=== PATIENT | male | born 1995 | race Caucasian/White ===

== ENCOUNTER 2023-04-03 16:25 | Emergency (ER) | payer BC, SELFPAY ==
[2023-04-03 16:35] VITALS: BP 136/94; PULSE 91; RESP 16; TEMP 36.2; O2SAT 100
--- NOTE | 2023-04-03 16:35 | ED.BACK ---
HPI - Back Pain/Injury General Chief Complaint: Neck Pain/Injury Stated Complaint: Neck and Upper Back Pain Time Seen by Provider: 04/03/23 16:36 Source: patient Mode of arrival: ambulatory Limitations: no limitations History of Present Illness HPI Narrative: 27-year-old male presented for complaint of mid posterior neck pain, onset today at 3:00 a.m. He took a Flexeril at the onset then went back to sleep, and at 9:00 a.m. he took Tylenol and ibuprofen. He states he slept until about an hour prior to arrival. Continues to have neck pain with minimal movement of the neck. Denies numbness, tingling, weakness or pain radiating to the upper extremities. Denies injury or overuse. Related Data Allergies Allergy/AdvReac Type Severity Reaction Status Date / Time No Known Allergies Allergy Verified 04/03/23 16:37 Review of Systems Review of Systems: CONSTITUTIONAL: Denies body aches, fever, chills EYES: Denies visual changes CARDIOVASCULAR: Denies chest pain, palpitations, or edema. RESPIRATORY: Denies cough or dyspnea. GASTROINTESTINAL: Denies abdominal pain, nausea, vomiting, or diarrhea. SKIN: Denies rash, itching, or wounds. MUSCULOSKELETAL: reports neck pain NEUROLOGIC: Denies headache, numbness, tingling, or weakness. All systems reviewed & are unremarkable except as noted in HPI and below PMFSH Past Medical History Medical History (Updated 04/03/23 @ 16:48 by Martina Caruso, MIL) No pertinent past medical history Comments At time of signature, I have reviewed and agree with nursing past medical, surgical, social and family history unless otherwise noted. Please see nursing chart for further information. There is no relevant family history pertinent to the presenting complaint Exam Narrative: GENERAL: Well-appearing, and in no acute distress. HEAD: Normocephalic, atraumatic. EYES: conjunctivae clear PERRLA, EOMI NECK: Supple. full ROM CHEST: Speaks in full sentences. No respiratory distress. HEART: Regular rate and rhythm. Normal and equal peripheral pulses. MUSC: Mid posterior cervical pain reported with movement of head laterally and chin to chest. Minimal pain with lifting chin. No cervical vertebral point tenderness or paraspinal tenderness with palpation. BUEs with normal strength and sensation, normal range of motion; endorses mild neck pain with movement of BUEs overhead. No ecchymosis, No open wounds, or obvious deformity; alignment normal, pulse palpable and equal bilaterally, skin warm, dry, pink. Capillary refill less than 3 seconds. Gait steady. SKIN: Warm, dry, no rash. NEURO: Alert and oriented x3. Course Course Emergency Course: Patient is aware of diagnosis, understands and agrees to treatment plan. Anticipatory guidance given. Patient agrees to follow-up as directed and is aware of reasons to seek care at the emergency department. Portions of this record may have been created with voice recognition software Level of Care: Express Care Visit Vital Signs Vital signs: Reviewed MDM - Back Pain/Injury MDM Narrative Medical decision making narrative: Discussed physical exam findings. No indication for imaging at this time. Reviewed prescriptions. Advised supportive measures and s/s to go to the ER. Pt is stable and appropriate for outpt treatment and follow up with pcp. Provided with list of pcp's. Differential Diagnosis Differential diagnosis: Likely discitis and other (Musculoskeletal injury, torticollis, cervical spondylosis, cervical stenosis, epidural abscess, cervical spine dislocation or fracture, osteomyelitis, disc herniation, cervical radiculopathy) Discharge Plan Discharge Clinical Impression: Acute neck pain Patient Disposition: Home, Self-Care Condition: Stable Instructions: Antibiotic Form, Acute Neck Pain (ED) Additional Instructions: Rest. Avoid pushing, pulling, lifting or anything that worsens the symptoms Take steroid as directed Cyclobenz
== END 2023-04-03 17:00 | disposition home or self-care (01) ==
PROVIDERS: Emergency Provider Nurse Practitioner Family
DX: M54.2 Cervicalgia (principal)
CPT/HCPCS: 99203; G0463

== ENCOUNTER 2023-07-22 09:47 | Emergency (ER) | payer BC, SELFPAY ==
[2023-07-22 10:00] VITALS: BP 137/84; PULSE 84; RESP 18; TEMP 36.4; O2SAT 98
[2023-07-22 10:01] VITALS: BP 137/84; PULSE 84; RESP 18; TEMP 36.4; O2SAT 98
--- NOTE | 2023-07-22 10:10 | ED.GENADULT ---
HPI - General Adult General Chief complaint: Ear Stated complaint: Bilateral Ear Irritation,Rt Eye Irritation Time Seen by Provider: 07/22/23 10:11 Source: patient Mode of arrival: ambulatory Limitations: no limitations History of Present Illness HPI narrative: 27-year-old male patient presents to clinic today with complaints of fevers, chills, productive cough, sore throat, right eye discharge, and right ear discharge with pain. Patient states his fever was on Sunday and was 101.3? F and has been taking Tylenol and Aleve since and has not retaken his temperature. Patient states that last night while driving in his car his ear pain in the right was an 8 out of 10 on a 0-10 pain scale and then he suddenly felt some relief and the pain was reduced to a 4/10 on a 0-10 pain scale. Patient reports muffled hearing of the right ear. Related Data Allergies Allergy/AdvReac Type Severity Reaction Status Date / Time No Known Allergies Allergy Verified 07/22/23 10:01 Review of Systems Review of Systems: CONSTITUTIONAL: positive fever, chills, and sweats. EYES: Denies visual changes, redness, positive right eye discharge without discomfort. ENT: positive rhinorrhea, congestion, sore throat, and bilateral otalgia. positive right ear drainage. posterior oropharynx is erythematous with tonsils at 3+ nodular and exudate present. CARDIOVASCULAR: Denies chest pain, palpitations, or edema. RESPIRATORY: positive productive cough, denies dyspnea. GASTROINTESTINAL: Denies abdominal pain, nausea, vomiting, or diarrhea. GENITOURINARY: Denies dysuria or hematuria. SKIN: Denies rash or itching. MUSCULOSKELETAL: Denies back pain, joint pain, or myalgia. NEUROLOGIC: Denies headache, numbness, or weakness. PSYCHIATRIC: Denies anxiety or depression. PMFSH Past Medical History Medical History No pertinent past medical history Comments At the time of my signature I agree with nursing past medical history, surgical, social, and family history. There is no relevant family history pertinent to the presenting complaint. Exam Narrative: GENERAL: Well-appearing, well-nourished, and in no acute distress. HEAD: Normocephalic, atraumatic. EYES: PERRLA and EOMI. ENT: Nares clear, positive rhinorrhea and bilateral turbinates edematous, negative epistaxis. Mucous membranes moist. posterior oropharynx is erythematous with tonsils at 3+ position, nodular, and with exudate. left ear free of drainage erythema and edema in tympanic membrane intact and pearly garcia. right ear canal present with purulent drainage coming from a perforated tympanic membrane. right ear canal it is erythematous and edematous. NECK: Supple. No lymphadenopathy CHEST: Clear to auscultation. No respiratory distress. HEART: Regular rate and rhythm. No murmur heard. Normal peripheral pulses. ABDOMEN: Soft, nontender, nondistended, normal active bowel sounds. EXTREMITIES: Normal range of motion. No edema. SKIN: Warm, dry, no rash. NEURO: No focal deficits. Alert and oriented x3. Course Course Level of Care: Express Care Visit Vital Signs Vital signs: Vital Signs Temperature 36.4 C L 07/22/23 10:00 Pulse Rate 84 07/22/23 10:00 Respiratory Rate 18 07/22/23 10:00 Blood Pressure 137/84 07/22/23 10:00 Pulse Oximetry 98 07/22/23 10:00 Oxygen Delivery Room Air 07/22/23 10:00 Temperature 36.4 C L 07/22/23 10:01 Pulse Rate 84 07/22/23 10:01 Respiratory Rate 18 07/22/23 10:01 Blood Pressure 137/84 07/22/23 10:01 Pulse Oximetry 98 07/22/23 10:01 Oxygen Delivery Room Air 07/22/23 10:01 At the time of my signature I agree with nursing past medical history, surgical, social, and family history. There is no relevant family history pertinent to the presenting complaint. The patient has been informed that they may have pre-hypertension or Hypertension based on a BP reading in the dep
== END 2023-07-22 10:40 | disposition home or self-care (01) ==
PROVIDERS: Emergency Provider Nurse Practitioner Family
DX: H66.91 Otitis media, unspecified, right ear (principal); H72.91 Unspecified perforation of tympanic membrane, right ear; J02.9 Acute pharyngitis, unspecified; Z20.822 Contact with and (suspected) exposure to COVID-19
CPT/HCPCS: 87081; 87426; 87804; 87880; 99213; G0463